=== PATIENT | female | born 1955 | race Caucasian/White ===

== ENCOUNTER 2020-07-01 18:11 | Emergency (ER) | payer MEDICARE, BC ==
--- NOTE | 2020-07-01 19:00 | EDM.PDOC ---
ED HPI GENERAL MEDICAL PROBLEM - General Chief Complaint: General Stated Complaint: SORE THROAT,NAUSEA,FATIGUE Time Seen by Provider: 07/01/20 18:45 Source of Information: Reports: Patient, RN History Limitations: Reports: Other (limited records) - History of Present Illness INITIAL COMMENTS - FREE TEXT/NARRATIVE: 65 yo female presents with a 2 d hx of mild R sided sore throat and some fatigue. Is worried about having Covid. Has not been to the clinic for this. Drove from [employer] [facility] [employer] alone to be tested. Sx's not getting worse. No fever. No cough or SOB. Does smoke. Onset: Gradual Onset Date: 06/29/20 Duration: Day(s): (2), Constant Location: Reports: Neck (R side of throat), Generalized Quality: Reports: Other (irritation with swallowing) Severity: Mild Improves with: Reports: None Worsens with: Reports: Other (swallowing) Context: Reports: Other (See HPI) Associated Symptoms: Reports: Other (mild fatigue). Denies: Fever/Chills, Nausea/Vomiting, Rash Treatments [employer]: Reports: Other (see below) (none) - Related Data Allergies Allergy/AdvReac Type Severity Reaction Status Date / Time No Known Allergies Allergy Verified 07/01/20 18:29 Home Meds: Home Meds Gabapentin [Neurontin] 900 mg PO TID 03/19/17 [History] LORazepam 1 mg PO DAILY PRN 03/19/17 [History] lamoTRIgine [Lamictal] 25 mg PO DAILY 03/19/17 [History] traZODone 300 mg PO BEDTIME 03/19/17 [History] buPROPion HCL [Wellbutrin Xl] 300 mg PO DAILY 12/03/18 [History] Past Medical History Psychiatric History: Reports: Anxiety, Depression Social & Family History - Tobacco Use Tobacco Use Status *Q: Current Every Day Tobacco User Years of Tobacco use: 45 Packs/Tins Daily: 0.5 - Recreational Drug Use Recreational Drug Use: No ED ROS GENERAL - Review of Systems Review Of Systems: See Below Constitutional: Reports: Fatigue (mild). Denies: Fever, Chills HEENT: Reports: Throat Pain (mild, R sided). Denies: Throat Swelling Respiratory: Reports: No Symptoms Cardiovascular: Reports: No Symptoms GI/Abdominal: Reports: No Symptoms : Reports: No Symptoms Musculoskeletal: Reports: No Symptoms Skin: Reports: No Symptoms Neurological: Reports: No Symptoms Psychiatric: Reports: No Symptoms ED EXAM, GENERAL - Physical Exam Exam: See Below Exam Limited By: No Limitations General Appearance: Alert, WD/WN, No Apparent Distress, Thin Eye Exam: Bilateral Eye: Normal Inspection Ears: Normal External Exam, Normal Canal, Hearing Grossly Normal, Normal TMs Ear Exam: Bilateral Ear: Auricle Normal, Canal Normal, TM normal Nose: Normal Inspection, No Blood Throat/Mouth: Normal Inspection, Normal Lips, Normal Oropharynx, Normal Voice, No Airway Compromise. No: Inflammation Head: Atraumatic, Normocephalic Neck: Normal Inspection, Supple, Non-Tender Respiratory/Chest: No Respiratory Distress, Lungs Clear, Normal Breath Sounds, No Accessory Muscle Use Cardiovascular: Regular Rate, Rhythm, No Edema GI/Abdominal: Soft, Non-Tender, No Distention Extremities: Normal Inspection Neurological: Alert, Oriented, CN II-XII Intact, Normal Cognition, No Motor/Sensory Deficits Psychiatric: Normal Affect, Normal Mood Skin Exam: Warm, Dry, Intact, Normal Color, No Rash Course - Vital Signs Last Recorded V/S: Last Vital Signs Temp 35.5 C L 07/01/20 18:31 Pulse 78 07/01/20 18:31 Resp 12 07/01/20 18:31 BP 116/66 07/01/20 18:31 Pulse Ox 98 07/01/20 18:31 - Orders/Labs/Meds Orders: Active Orders 24 hr Category Date Time Status CORONAVIRUS COVID-19, [place] Routine Lab 07/01/20 18:53 Ordered Departure - Departure Time of Disposition: 18:58 Disposition: Home, Self-Care 01 Condition: Good Clinical Impression: Throat irritation - Discharge Information *PRESCRIPTION DRUG MONITORING PROGRAM REVIEWED*: Not Applicable *COPY OF PRESCRIPTION DRUG MONITORING REPORT IN PATIENT MARGARITO: Not Applicable Referrals: PCP,None [Primary Care Provider] - Additional Instructions: Take acetaminophen every 4 hrs for pain relief. No smoking. Someone will call you by midweek with your Covid results. Stay isolated to prevent spread if you think you may have Covid. Frequent hand washing. Recheck with your provider if not improving. Sepsis Event Note (ED) - Evaluation Sepsis Screening Result: No Definite Risk - Focused Exam Vital Signs: Vital Signs Temp Pulse Resp BP Pulse Ox 07/01/20 18:31 35.5 C L 78 12 116/66 98 - My Orders Last 24 Hours: My Active Orders 07/01/20 18:53 CORONAVIRUS COVID-19, [place] Routine - Assessment/Plan Last 24 Hours: My Active Orders 07/01/20 18:53 CORONAVIRUS COVID-19, [place] Routine
== END 2020-07-01 19:09 | disposition home or self-care (01) ==
LOC: JP.ED 18:11
DX: J39.2 Other diseases of pharynx (principal); Z72.0 Tobacco use; Z20.822 Contact with and (suspected) exposure to COVID-19
CPT/HCPCS: 99282; 99283; U0002